=== PATIENT | female | born 1965 | race Caucasian/White ===

== ENCOUNTER 2020-08-18 14:47 | Emergency (ER) | payer OTHER, SELFPAY ==
[2020-08-18 15:00] VITALS: BP 171/84; PULSE 81; RESP 16; TEMP 36.4; O2SAT 96
--- NOTE | 2020-08-18 15:20 | ED.GENADULT ---
HPI - General Adult General Chief complaint: Neck Pain/Injury Stated complaint: severe neck pain Time Seen by Provider: 08/18/20 15:20 Source: patient and RN notes reviewed Mode of arrival: ambulatory Limitations: no limitations History of Present Illness HPI narrative: 55-year-old female presents with complaints of mid-lower posteior neck pain with intermittent burning sensation throughout shoulders for the past 2-3 months. Aleve for 2 weeks, Tylenol, last yesterday, and Ibuprofen 600mg last this morning at 09:00 without relief. No injury. Ashia says she lifts 30-40 pound boxes at work. No headache or numbness or weakness in the arms/upper extremities. Denies numbness. Tingling throughout upper shoulders that radiates down arms into hands intermittently. Denies pain with movement of shoulder. No loss of mobility. No swelling. Relieving factor is rest at times. The dominant hand is the RIGHT HAND. The patient reports she have not been diagnosed with COVID-19. The patient reports she is not waiting for the results of a COVID-19 lab test. The patient reports she do not have fever, chills, weakness, or fatigue. The patient reports she do not have a new or worsening cough or shortness of breath. Denies chest pain. The patient reports she do not have any rhinorrhea, congestion, loss of taste, sore throat, loss of taste, nausea, vomiting, abdominal pain, and diarrhea. Tolerating po intake well. Denies recent traveling. Denies concerns for COVID-19 or exposures been home with limited outdoor exposure except for essential household needs, work, and return home. At this time, patient is not suspected of having COVID-19. Some parts of this dictation were generated by voice recognition software and may contain typographical and/or grammatical inaccuracies. Related Data Allergies Allergy/AdvReac Type Severity Reaction Status Date / Time No Known Allergies Allergy Verified 08/19/20 10:35 Review of Systems Review of Systems: Narrative: CONSTITUTIONAL: Denies fever, chills, sweats. EYES: Denies visual changes, redness, discharge. ENT: Denies rhinorrhea, congestion, sore throat, otalgia. CARDIOVASCULAR: Denies chest pain, palpitations, edema. RESPIRATORY: Denies dyspnea, wheezing, cough. GASTROINTESTINAL: Denies abdominal pain, nausea, vomiting, diarrhea. GENITOURINARY: Denies dysuria, hematuria, abnormal discharge. SKIN: Denies rash or itching. MUSCULOSKELETAL: Denies acute back pain, joint pain, or myalgia. Complains of mid-lower posterior neck pain with burning sensation into shoulders. NEUROLOGIC: Denies numbness or focal weakness. PSYCHIATRIC: Denies anxiety or depression. All systems reviewed & are unremarkable except as noted in HPI and below. [facility] Past Medical History Medical History (Updated 08/19/20 @ 12:25 by Adrienne Mcknight MD) Arthralgia Chronic insomnia MDD (major depressive disorder), recurrent episode, mild Postmenopausal Tobacco abuse Surgical History Surgical History (Updated 08/19/20 @ 12:16 by Adrienne Mcknight MD) History of tubal ligation Tubal ligation status Social History Social History (Updated 08/19/20 @ 10:38 by Yolis Rosado) Social History: Smoking packs per day: 0.5 Smoking cigarettes per day: 10.0 Years smoked: 30 Smoking pack-years: 15.00 Smoking status: Current every day smoker Tobacco type: cigarettes Second hand tobacco smoke exposure: Yes Alcohol intake: current Substance use: never Substance use type: does not use Gender identity (if verbalized by the patient): Female Comments At time of signature, I have reviewed and agree with nursing past medical, surgical, social, and family history. Please see nursing chart for further information. There is no relevant family history pertinent to the presenting complaint. Exam Narrative: Exam Narrative: GENERAL: This is a well-nourished, well-developed patient, in no apparent dist
[2020-08-18] MEDS: KETOROLAC (*BKC) 60 MG/2 ML VIAL IM (15:36)
== END 2020-08-18 16:08 | disposition home or self-care (01) ==
PROVIDERS: Emergency Provider Nurse Practitioner Family
DX: M54.2 Cervicalgia (principal); F17.210 Nicotine dependence, cigarettes, uncomplicated
CPT/HCPCS: 96372; 99203; G0463; J1885

== ENCOUNTER → 2023-02-28 11:20 | Outpatient (CLI) | payer OTHER, SELFPAY ==
--- NOTE | ~2023-02-28 | CT_ITS ---
EXAMINATION: CT lung screening DATE: 02/28/2023 11:47 INDICATION: lung cancer screening TECHNIQUE: Computed tomography (CT) of the chest was performed without intravenous contrast. Addition al 3D reconstructions utilizing coronal maximum intensity projection (MIP) were performed. Automated exposure control and iterative reconstruction technique were employed. The dose-length product was 11 7.57 mGy-cm. COMPARISON: None FINDINGS: Mild emphysema. 4 mm subpleural nodule in the left lower lobe. There are bilateral thin triangular in trafissural lymph nodes along the left and right major fissures. Mild linear discoid atelectasis/scar ring at the caudal tip of the lingula. Additional mild atelectasis/scarring at the medial margin of t he right middle lobe. No pneumonia, pulmonary edema or pleural effusion. Heart size is normal. Small amount of atherosclerotic coronary artery calcific location. No pericardial effusion. Thoracic aorta is normal in caliber. No pathologically enlarged thoracic lymphadenopathy. Superficial 1.5 cm midline posterior subcutaneous relatively low density nodule overlying the spinous process of T4 most likely a sebaceous/epidermoid cyst. Mild upper thoracic levocurvature with mild spondylosis. IMPRESSION: 1. Lung-RADS category 2: Benign appearance or behavior. Continue annual screening with noncontrast lo w-dose chest CT in 12 months. 2. Nonspecific 1.5 cm superficial subcutaneous nodule posterior to the T4 spinous process, statistica lly most likely represent a sebaceous/epidermoid cyst. Reviewed, dictated and finalized at location A. IMPRESSION: 1. Lung-RADS category 2: Benign appearance or behavior. Continue annual screeni ng with noncontrast low-dose chest CT in 12 months. 2. Nonspecific 1.5 cm superficial subcutaneous nodule posterior to the T4 spino us process, statistically most likely represent a sebaceous/epidermoid cyst.
== END ==
PROVIDERS: PCP Family Medicine; Visit Provider Family Medicine
DX: Z12.2 Encounter for screening for malignant neoplasm of respiratory organs (principal); Z87.891 Personal history of nicotine dependence
CPT/HCPCS: 71271

== ENCOUNTER → 2023-03-03 13:18 | Outpatient (CLI) | payer OTHER, SELFPAY ==
--- NOTE | ~2023-03-03 | US_ITS ---
EXAMINATION: US soft tissue upper back INDICATION: Palpable soft tissue abnormality of the upper back TECHNIQUE: Targeted ultrasound is performed in the area of clinical concern. COMPARISON: None available FINDINGS: There is a 1.7 x 1 x 1.5 cm round, circumscribed, hypoechoic area in the subcutaneous tissu es of the upper back corresponding to area of clinical concern. There is a tract to the skin surface. No abnormal vascularity is identified. There is posterior acoustic enhancement. IMPRESSION: 1. Findings consistent with a sebaceous cyst of the upper back corresponding to the area of clinical concern. Reviewed, dictated and finalized at location L.
== END ==
PROVIDERS: PCP Family Medicine; Visit Provider Physician Assistant
DX: R93.89 Abnormal findings on diagnostic imaging of other specified body structures (principal)
CPT/HCPCS: 76604

== ENCOUNTER → 2023-05-23 12:00 | Outpatient (CLI) | payer OTHER, SELFPAY ==
--- NOTE | ~2023-05-23 | US_ITS ---
EXAMINATION: US carotid duplex BI DATE: 05/23/2023 12:24 INDICATION: Vertigo. Syncope and collapse. TECHNIQUE: Grayscale, color Doppler, and pulsed Doppler images of the cervical carotid arteries were obtained. The degree of vessel stenosis is placed in one of the following categories: normal, <50%, 5 0-69%, >=70% but less than near-occlusion, near-occlusion, or total occlusion. Note that percent sten osis relative to normal distal artery lumen diameter is indirectly measured from velocity measurement s as described by Dirk, et al. Radiology 2003; 229:340-346. COMPARISON: None. FINDINGS: RIGHT: The right common carotid artery (CCA) peak systolic velocity (PSV) is 90 cm/s. The right internal car otid artery (ICA) PSV is 80 cm/s. The right ICA end-diastolic velocity (EDV) is 27 cm/s. The right IC A/CCA PSV ratio is 1.4. Grayscale and color Doppler images yield an estimate of <50% diameter reducti on from plaque in the ICA. The external carotid artery (ECA) PSV is 124 cm/s. There is antegrade flow in the right vertebral artery. LEFT: The left CCA PSV is 78 cm/s. The left ICA PSV is 76 cm/s. The left ICA EDV is 32 cm/s. The left ICA/C CA PSV ratio is 1.7. Grayscale and color Doppler images yield an estimate of <50%1 diameter reduction from plaque in the ICA. The ECA PSV is 105 cm/s. There is antegrade flow in the left vertebral arter y. IMPRESSION: 1. <50% stenosis in the right internal carotid artery. 2. <50% stenosis in the left internal carotid artery. Reviewed, dictated and finalized at location A.
== END ==
PROVIDERS: PCP Family Medicine; Visit Provider Physician Assistant
DX: R55 Syncope and collapse (principal); I65.23 Occlusion and stenosis of bilateral carotid arteries
CPT/HCPCS: 93880

== ENCOUNTER 2023-06-24 09:28 | Outpatient (CLI) | payer OTHER, SELFPAY ==
--- NOTE | 2023-06-24 09:37 | ECHO_ITS ---
Patient Info Name: Ashia Rodríguez Age: 57 years : 1965 Gender: Female Ht: 64 in Wt: 179 lbs BSA: 1.94 m2 HR: 67 bpm BP: 137 / 89 mmHg Heart Rhythm: Sinus Rhythm Technical Quality: Fair Exam Date: 06/24/2023 9:51 AM Exam Location: [facility] Patient Status: Outpatient Admit Date: 06/24/2023 Staff Ordering Physician: Rebecca Thomas PA-C Chip Applying Machine Tender: Ina Benitez RDCS Attending Provider: Rebecca Thomas PA-C Referring Physician: William PEARL; Exam Type: CA echo doppler color flow Study Info Indications - syncope /collaspe Complete two-dimensional, color flow and Doppler transthoracic echocardiogram is performed. Summary 1. Complete two-dimensional, color flow and Doppler transthoracic echocardiogram is performed. 2. Normal left ventricular size thickness and overall systolic function. 3. Grade 1 diastolic noncompliance. 4. Abnormal septal motion with IVCD or bundle branch block, correlate with 12 lead ECG. 5. No valvular dysfunction. Left Ventricle Left ventricular chamber dimension is normal. Left ventricular systolic function is normal, estimated at 50-55%. Left ventricular septal wall motion is abnormal with septal motion related to bundle branch block. The left ventricular diastolic function is grade I diastolic dysfunction. Right Ventricle Right ventricular chamber dimension is normal. Left Atria Left atrial chamber dimension is normal. Right Atria Right atrial chamber dimension is normal. Aortic Valve The aortic valve is normal. Pulmonic Valve The pulmonic valve is not well visualized. Mitral Valve The mitral valve has normal leaflets. Tricuspid Valve The tricuspid valve leaflets are normal. Pericardium/Pleural The pericardium appears normal. Aorta The aortic root size at the sinus of Valsalva is normal. Left Ventricular Outflow Tract Name Value Normal LVOT 2D LVOT Diameter 2.1 cm LVOT Doppler LVOT Peak Gradient 4 mmHg LVOT Mean Gradient 2 mmHg LVOT VTI 19 cm LVOT VTI/AV VTI Ratio 0.8 LVOT Stroke Volume 63 ml LVOT CO 12.7 l/min LVOT CI 6.6 l/min/m2 Pulmonic Valve Name Value Normal PV Doppler PV Peak Gradient 4 mmHg Mitral Valve Name Value Normal MV Doppler MV Decel [place] 270 cm/s2 MV PHT 63 ms MV Area (PHT) 3.5 cm2 4.0-5.0 MV Diastolic Function
== END 2023-06-24 09:29 | disposition home or self-care (01) ==
PROVIDERS: PCP Family Medicine; Visit Provider Physician Assistant
DX: R55 Syncope and collapse (principal)
CPT/HCPCS: 93306

== ENCOUNTER 2023-08-03 09:02 | Outpatient (CLI) | payer OTHER, SELFPAY ==
[2023-08-03 09:57] LABS: Alanine Aminotransferase 22 U/L (6-35); Albumin Level 4.5 g/dL (3.5-5.1); Alkaline Phosphatase 75 U/L (38-126); Anion Gap 10 mmol/L (8-16); Aspartate Amino Transferase 24 U/L (14-36); Bilirubin,Total 0.4 mg/dL (0.2-1.3); Blood Urea Nitrogen 16 mg/dL (7-17); Calcium 9.2 mg/dL (8.4-10.2); Carbon Dioxide 28 mmol/L (22-30); Chloride 100 mmol/L (98-107); Cholesterol 166 mg/dL (0-200); Estimated Glomerular Filt Rate > 60; Glucose 138 mg/dL (65-110); HDL Direct 40 mg/dL; Potassium 4.5 mmol/L (3.4-5.0); Sodium 138 mmol/L (137-145); Triglycerides 337 mg/dL (<150)
[2023-08-03 10:08] LABS: LDL Cholesterol Direct 82 mg/dL
[2023-08-03 10:47] LABS: Hemoglobin A1C 6.2 % (<5.7)
== END 2023-08-03 09:03 | disposition home or self-care (01) ==
PROVIDERS: PCP Family Medicine; Referring Provider Internal Medicine Cardiovascular Disease; Visit Provider Physician Assistant
DX: E11.9 Type 2 diabetes mellitus without complications (principal); K21.9 Gastro-esophageal reflux disease without esophagitis; E78.2 Mixed hyperlipidemia; I10 Essential (primary) hypertension
CPT/HCPCS: 36415; 80053; 80061; 83036

== ENCOUNTER 2023-09-13 08:07 | Outpatient (CLI) | payer OTHER, SELFPAY ==
--- NOTE | ~2023-09-13 | NM_ITS ---
EXAMINATION: NM zonia stress w perfusion DATE: 09/13/2023 11:09 INDICATION: Dyspnea on exertion TECHNIQUE: Rest images were obtained following intravenous administration of 9.016 mCi Tc99m tetrofos min (Myoview). The patient was infused intravenously with Lexiscan (Regadenoson). Then, 28.3 mCi Tc99 m tetrofosmin (Myoview) was administered intravenously, and stress images were obtained. Data was rec onstructed into short axis and horizontal and vertical long axis SPECT images. Gated SPECT images wer e also obtained. COMPARISON: None. FINDINGS: There are perfusion defects at the basilar anteroseptal and anterior segments and extending short distance into the adjacent mid anteroseptal and mid anterior segments which are more prominent at the anteroseptal segments on the rest than on the stress imaging and which shift in position when comparing the post stress images obtained in the supine and prone positions. This likely reflects br east attenuation artifact. No common regions of decreased activity on the post stress images obtained in the prone and supine position to suggest ischemia or infarct. There is normal left ventricular ch hannah size, wall motion and ejection fraction. Left ventricular ejection fraction measures 67%. IMPRESSION: 1. Likely breast attenuation artifact along the basilar and portions of the mid anteroseptal and ante rior segments. No definitive perfusion defects and common on the post stress imaging obtained in pron e and supine position to suggest ischemia or infarct. 2. Left ventricular ejection fraction measuring 67%. Reviewed, dictated and finalized at location A. IMPRESSION: 1. Likely breast attenuation artifact along the basilar and portions of the mid anteroseptal and anterior segments. No definitive perfusion defects and common on the post stress imaging obtained in prone and supine position to suggest is chemia or infarct. 2. Left ventricular ejection fraction measuring 67%.
--- NOTE | 2023-09-13 08:32 | EST_ITS ---
Patient Info Name: Ashia Rodríguez Age: 58 years : 1965 Gender: Female Ht: 62 in Wt: 180 lbs BSA: 1.92 m2 HR: 74 bpm BP: 127 / 79 mmHg Heart Rhythm: Sinus Rhythm Exam Date: 09/13/2023 9:49 AM Exam Location: [facility] Stress Patient Status: Outpatient Admit Date: 09/13/2023 Staff Ordering Physician: Cb Bishop DO Attending Provider: Cb Bishop DO Exercise Technologist: Karen Galeano CT Exercise Physician: Cb Bishop DO Exam Type: CA stress zonia w NM Study Info Indications R06.09 - Other forms of dyspnea A regadenoson stress test was performed. Summary 1. 1. Negative lexiscan stress test for ischemic ST changes by ECG criteria. 2. 2. Stable hemodynamics throughout the test. 3. 3. Nuclear scan to follow and will be reported separately. Please correlate with it. 4. 4. Patient informed of the above results. Protocol: Lexiscan Stress ECG Details Stage: REST Duration (min): 1 min : 3 sec HR (bpm): 75 SBP (mmHg): 127 DBP (mmHg): 79 Stage: REST Duration (min): 8 min : 26 sec HR (bpm): 80 SBP (mmHg): 127 DBP (mmHg): 79 Stage: STAGE 1 Duration (min): 1 min : 0 sec HR (bpm): 104 SBP (mmHg): 122 DBP (mmHg): 81 Stage: RECOVERY Duration (min): 1 min : 0 sec HR (bpm): 93 SBP (mmHg): 122 DBP (mmHg): 81 Stage: RECOVERY Duration (min): 2 min : 0 sec HR (bpm): 96 SBP (mmHg): 122 DBP (mmHg): 81 Stage: RECOVERY Duration (min): 3 min : 0 sec HR (bpm): 88 SBP (mmHg): 119 DBP (mmHg): 76 Stage: RECOVERY Duration (min): 3 min : 15 sec HR (bpm): 87 SBP (mmHg): 119 DBP (mmHg): 76 Rest HR: 80 bpm Peak HR: 104 bpm Rest Sys BP: 127 mmHg Peak Sys BP: 122 mmHg Max Pred HR: 162 bpm % Max Pred HR: 64 % Target HR: 138 bpm Max RPP: 12,688 bpm*mmHg Termination Reason: Completed protocol Cardiac Symptoms: Shortness of breath Total Time: 1 min : 0 sec Rest Villarreal BP: 79 mmHg Peak Villarreal BP: 81 mmHg Total Dose: 0.4 mg Resting ECG Sinus rhythm. Stress ECG No ST changes. Arrhythmias None. Report Signatures
== END 2023-09-13 08:08 | disposition home or self-care (01) ==
LOC: ANHCARD 08:08
PROVIDERS: PCP Family Medicine; Visit Provider Internal Medicine Cardiovascular Disease
DX: R06.09 Other forms of dyspnea (principal)
CPT/HCPCS: 78452; 93017; A9502; J2785

== ENCOUNTER 2024-02-06 09:32 | Outpatient (CLI) | payer OTHER, SELFPAY ==
--- NOTE | ~2024-02-06 | XR_ITS ---
EXAMINATION: XR_[id number]_CR DATE: 02/06/2024 09:59 INDICATION: Neck pain. TECHNIQUE: 3 views of cervical spine were obtained. COMPARISON: None. FINDINGS: There is 8 degrees dextrocurvature of cervical spine. There is hypolordosis of cervical spi ne. Vertebral body heights are normal. There is moderately decreased disc height at C4-C5 and C5-C6. There is multilevel uncovertebral joint osteoarthritis, severe on the left at C4-C5 and C5-C6. There is multilevel mild facet joint osteoarthritis. There is mild central canal stenosis at C4-C5 and C5-C 6. No prevertebral soft tissue swelling. IMPRESSION: 1. Moderate cervical spondylosis. Reviewed, dictated and finalized at location A.
== END 2024-02-06 09:33 ==
PROVIDERS: PCP Physician Assistant; Visit Provider Physician Assistant
DX: M47.892 Other spondylosis, cervical region (principal)
CPT/HCPCS: 72040

== ENCOUNTER 2024-03-28 03:08 | Day surgery (SDC) | payer OTHER, SELFPAY ==
[2024-03-13 12:54] VITALS: BMI 32.5
[2024-03-28 06:19] VITALS: BP 129/81; PULSE 82; RESP 18; TEMP 36.1; O2SAT 95; BMI 33.0
[2024-03-28] MEDS: LACTATED RINGERS 1,000 ML 150 ML IV CONT (06:33)
[2024-03-28 06:36] LABS: Glucose Point of Care 154 mg/dl (65-105)
--- NOTE | 2024-03-28 07:21 | PM.HPGS ---
History of Present Illness History of Present Illness Consent: Risks, benefits, and alternatives have been discussed and questions answered. Patient agrees to proceed with procedure. Chief complaint: other fecal abnormalities, neoplasm screening Narrative: Ashia Rodríguez is a 58 year old female here for colonoscopy, had + cologuard Review of Systems Review of Systems: All systems reviewed & are unremarkable except as noted in HPI and below PMFSH Past Medical History Medical History Arthralgia Breast cancer screening Cervical paraspinal muscle spasm Chronic insomnia COPD (chronic obstructive pulmonary disease) MDD (major depressive disorder), recurrent episode, mild Postmenopausal Tobacco abuse UTI (urinary tract infection) Surgical History Surgical History History of tubal ligation Tubal ligation status Family History Family History Father Heart disease Mother Heart disease Sibling Heart disease, Onset Age: 28 [place] Grandparent Family history of heart disease Social History Social History Social History: Smoking packs per day: 1 Smoking cigarettes per day: 20.0 Years smoked: 30 Smoking pack-years: 30.00 Smoking status: Former smoker Tobacco type: cigarettes Second hand tobacco smoke exposure: Yes Smoking end date: 12/01/20 Alcohol intake: current Alcohol use details: socially Substance use: never Substance use type: does not use Do You Feel Safe in your Home?: Yes Lack of Transportation: No Lack of Food: Never True Current Housing: I Have Housing Concerned About Future Housing: No Difficulty Paying Gas/Electric Bills: No Difficulty Paying for Meds: No Currently Unemployed: YES Education: Don't Know Difficulty w/ Childcare or Family Care: No Living arrangements: with family Occupation/Education: unemployed Additional occupation/education comments: Disability Gender identity (if verbalized by the patient): Female Sexual Orientation (if Verbalized by the Patient): Straight or Heterosexual Spiritual care concerns: No Meds Home Medications and Allergies Home Medications Medication Instructions Recorded Confirmed Type blood sugar diagnostic (Blood #200 ea 07/22/21 03/28/24 Rx Glucose Test strips) aspirin 81 mg chewable tablet 81 mg PO DAILY 10/18/22 03/28/24 History umeclidinium 62.5 mcg-vilanterol 1 inh inhalation DAILY 02/17/23 03/28/24 History 25 mcg/actuation powdr for inhalation (Anoro Ellipta) dapagliflozin propanediol 5 mg 5 mg PO DAILY 04/22/23 03/28/24 History tablet (Farxiga) albuterol sulfate 90 mcg/actuation 1 inh inhalation Q4H PRN shortness 01/04/24 03/28/24 Rx aerosol inhaler (ProAir HFA) of breath or wheezing #8.5 grams buspirone 5 mg tablet 5 mg PO BID #60 tabs 01/04/24 03/28/24 Rx lisinopril 20 See Rx Instructions .Route 01/04/24 03/28/24 Rx mg-hydrochlorothiazide 12.5 mg .COMPLEX #90 tabs tablet metformin 1,000 mg tablet See Rx Instructions .Route 01/04/24 03/28/24 Rx .COMPLEX #180 tabs rosuvastatin 10 mg tablet 10 mg PO DAILY #90 tabs 01/04/24 03/28/24 Rx trazodone 50 mg tablet See Rx Instructions .Route 01/04/24 03/28/24 Rx .COMPLEX #90 tabs cyclobenzaprine 5 mg tablet 5 mg PO TID PRN muscle spasm #90 02/06/24 03/28/24 Rx tabs meloxicam 15 mg tablet 15 mg PO DAILY #30 tabs 02/06/24 03/28/24 Rx Allergies Allergy/AdvReac Type Severity Reaction Status Date / Time No Known Allergies Allergy Verified 03/28/24 06:18 Vital Signs Vital Signs - 24 hr 03/28/24 06:19 Temperature 96.9 F L Pulse Rate 82 Respiratory Rate 18 Blood Pressure 129/81 Pulse Oximetry 95 Oxygen Delivery Room Air
--- NOTE | 2024-03-28 07:27 | WPDANESEPPF ---
Anes - Initial Pre Proc Eval Procedure: Operation Date: 03/28/24 07:30 Proposed Procedures p Colonoscopy - Yusuf Schumacher MD Date/Time: 03/28/24 07:27 Surgeon: Yusuf Schumacher MD Pre Op Diagnosis: other fecal abnormalities, neoplasm screening Patient Data Age: 58 Gender: F Height: 1.57 m Weight: 82 kg Last Vital Signs Temp 96.9 F L 03/28/24 06:19 Pulse 82 03/28/24 06:19 Resp 18 03/28/24 06:19 BP 129/81 03/28/24 06:19 Pulse Ox 95 03/28/24 06:19 O2 Del Method Room Air 03/28/24 06:19 Allergies Allergy/AdvReac Type Severity Reaction Status Date / Time No Known Allergies Allergy Verified 03/28/24 06:18 Home Medications Medication Instructions Recorded Confirmed Type blood sugar diagnostic (Blood #200 ea 07/22/21 03/28/24 Rx Glucose Test strips) aspirin 81 mg chewable tablet 81 mg PO DAILY 10/18/22 03/28/24 History umeclidinium 62.5 mcg-vilanterol 1 inh inhalation DAILY 02/17/23 03/28/24 History 25 mcg/actuation powdr for inhalation (Anoro Ellipta) dapagliflozin propanediol 5 mg 5 mg PO DAILY 04/22/23 03/28/24 History tablet (Farxiga) albuterol sulfate 90 mcg/actuation 1 inh inhalation Q4H PRN shortness 01/04/24 03/28/24 Rx aerosol inhaler (ProAir HFA) of breath or wheezing #8.5 grams buspirone 5 mg tablet 5 mg PO BID #60 tabs 01/04/24 03/28/24 Rx lisinopril 20 See Rx Instructions .Route 01/04/24 03/28/24 Rx mg-hydrochlorothiazide 12.5 mg .COMPLEX #90 tabs tablet metformin 1,000 mg tablet See Rx Instructions .Route 01/04/24 03/28/24 Rx .COMPLEX #180 tabs rosuvastatin 10 mg tablet 10 mg PO DAILY #90 tabs 01/04/24 03/28/24 Rx trazodone 50 mg tablet See Rx Instructions .Route 01/04/24 03/28/24 Rx .COMPLEX #90 tabs cyclobenzaprine 5 mg tablet 5 mg PO TID PRN muscle spasm #90 02/06/24 03/28/24 Rx tabs meloxicam 15 mg tablet 15 mg PO DAILY #30 tabs 02/06/24 03/28/24 Rx Laboratory Tests 03/28/24 06:25 POC Capillary Glucose 154 H mg/dl (65-105) Patient hx anesthesia problems: none Family hx anesthesia problems: none Results Review: All pre-operative results and documents have been reviewed as part of the pre-operative evaluation. [facility] Past Medical History Medical History Arthralgia Breast cancer screening Cervical paraspinal muscle spasm Chronic insomnia COPD (chronic obstructive pulmonary disease) MDD (major depressive disorder), recurrent episode, mild Postmenopausal Tobacco abuse UTI (urinary tract infection) Surgical History Surgical History History of tubal ligation Tubal ligation status Family History Family History Father Heart disease Mother Heart disease Sibling Heart disease, Onset Age: 28 [place] Grandparent Family history of heart disease Social History Social History Social History: Smoking packs per day: 1 Smoking cigarettes per day: 20.0 Years smoked: 30 Smoking pack-years: 30.00 Smoking status: Former smoker Tobacco type: cigarettes Second hand tobacco smoke exposure: Yes Smoking end date: 12/01/20 Alcohol intake: current Alcohol use details: socially Substance use: never Substance use type: does not use Do You Feel Safe in your Home?: Yes Lack of Transportation: No Lack of Food: Never True Current Housing: I Have Housing Concerned About Future Housing: No Difficulty Paying Gas/Electric Bills: No Difficulty Paying for Meds: No Currently Unemployed: YES Education: Don't Know Difficulty w/ Childcare or Family Care: No Living arrangements: with family Occupation/Education: unemployed Additional occupation/education comments: Disa
[2024-03-28 07:48] VITALS: BP 105/68; PULSE 78; RESP 18; O2SAT 95
[2024-03-28 07:56] VITALS: BP 116/64; PULSE 75; RESP 17; O2SAT 97
[2024-03-28 08:08] VITALS: BP 119/80; PULSE 74; RESP 14; O2SAT 95
== END 2024-03-28 08:17 | disposition home or self-care (01) ==
PROVIDERS: PCP Family Medicine; Visit Provider Internal Medicine Gastroenterology
PROC: 0DJD8ZZ Inspection of Lower Intestinal Tract, Via Natural or Artificial Opening Endoscopic (ICD-10-PCS; CPT 45378; principal; 2024-03-28 07:30)
DX: D12.0 Benign neoplasm of cecum (principal); K57.30 Diverticulosis of large intestine without perforation or abscess without bleeding; K64.8 Other hemorrhoids; J44.9 Chronic obstructive pulmonary disease, unspecified; F33.0 Major depressive disorder, recurrent, mild; Z87.891 Personal history of nicotine dependence; E66.9 Obesity, unspecified; Z68.33 Body mass index [BMI] 33.0-33.9, adult; Z79.51 Long term (current) use of inhaled steroids; Z79.84 Long term (current) use of oral hypoglycemic drugs; Z79.82 Long term (current) use of aspirin
CPT/HCPCS: 45385; 82948; 88305; J2704; J7120

== ENCOUNTER 2024-06-25 10:27 | Outpatient (CLI) | payer OTHER, SELFPAY ==
[2024-06-25 11:03] LABS: Basophils Absolute Auto 0.1 K/mm3 (0.0-0.1); Basophils Percent Auto 0.7 % (0.2-1.2); Eosinophils Absolute Auto 0.1 K/mm3 (0-0.3); Eosinophils Percent Auto 0.8 % (0-4.4); Hematocrit 45.1 % (37.0-47.0); Hemoglobin 15.1 g/dL (12.0-15.0); Immature Granulocyte Absolute 0.03 K/mm3 (0.00-0.031); Immature Granulocyte Percent A 0.4 % (0-0.5); Lymphocytes Absolute Auto 1.83 K/mm3 (0.9-3.2); Lymphocytes Percent Auto 24.5 % (18.3-44.2); Mean Corpuscular HGB Conc 33.5 g/dl (32-36); Mean Corpuscular Hemoglobin 31.1 pg (26-34); Mean Corpuscular Volume 92.8 fl (80-100); Mean Platelet Volume 10.3 fl (7.4-10.4); Monocytes Absolute Auto 0.4 K/mm3 (0.1-0.6); Monocytes Percent Auto 4.7 % (2.6-8.5); Neutrophils Absolute Auto 5.2 K/mm3 (1.3-6.7); Neutrophils Percent Auto 68.9 % (45.5-73.1); Platelet Count Result 195 k/mm3 (150-375); Red Blood Count 4.86 M/mm3 (4.2-5.4); Red Cell Distribution Width 12.2 % (11.5-14.5); White Blood Count 7.5 K/mm3 (4.5-10.0)
[2024-06-25 11:14] LABS: Alanine Aminotransferase 22 U/L (6-35); Albumin Level 4.7 g/dL (3.5-5.1); Alkaline Phosphatase 72 U/L (38-126); Anion Gap 11 mmol/L (4-12); Aspartate Amino Transferase 28 U/L (14-36); Bilirubin,Total 0.7 mg/dL (0.2-1.3); Blood Urea Nitrogen 19 mg/dL (7-17); Calcium 9.6 mg/dL (8.4-10.2); Carbon Dioxide 27 mmol/L (22-30); Chloride 99 mmol/L (98-107); Cholesterol 253 mg/dL (0-200); Estimated Glomerular Filt Rate > 60; Glucose 159 mg/dL (65-110); HDL Direct 39 mg/dL; Potassium 4.5 mmol/L (3.4-5.0); Sodium 137 mmol/L (137-145); Triglycerides 394 mg/dL (<150)
[2024-06-25 11:25] LABS: LDL Cholesterol Direct 136 mg/dL
[2024-06-25 11:54] LABS: Microalbumin Urine Random 49.5 mg/L (0-16.7)
== END 2024-06-25 10:28 | disposition home or self-care (01) ==
PROVIDERS: Student in an Organized Health Care Education/Training Program; PCP Family Medicine; Visit Provider Physician Assistant
DX: E11.65 Type 2 diabetes mellitus with hyperglycemia (principal); E78.2 Mixed hyperlipidemia; I10 Essential (primary) hypertension
CPT/HCPCS: 36415; 80053; 80061; 82043; 83036; 85025

== ENCOUNTER 2025-02-18 09:56 | Outpatient (CLI) | payer OTHER, SELFPAY ==
[2025-02-18 10:52] LABS: Hematocrit 45.9 % (37.0-47.0); Hemoglobin 15.3 g/dL (12.0-15.0); Mean Corpuscular HGB Conc 33.3 g/dl (32-36); Mean Corpuscular Hemoglobin 30.8 pg (26-34); Mean Corpuscular Volume 92.5 fl (80-100); Mean Platelet Volume 10.4 fl (7.4-10.4); Platelet Count Result 181 k/mm3 (150-375); Red Blood Count 4.96 M/mm3 (4.2-5.4); Red Cell Distribution Width 12.9 % (11.5-14.5); White Blood Count 8.7 K/mm3 (4.5-10.0)
[2025-02-18 11:08] LABS: Alanine Aminotransferase 38 U/L (6-35); Albumin Level 4.9 g/dL (3.5-5.1); Alkaline Phosphatase 67 U/L (38-126); Anion Gap 13 mmol/L (4-12); Aspartate Amino Transferase 44 U/L (14-36); Bilirubin,Total 0.8 mg/dL (0.2-1.3); Blood Urea Nitrogen 17 mg/dL (7-17); Calcium 9.8 mg/dL (8.4-10.2); Carbon Dioxide 28 mmol/L (22-30); Chloride 98 mmol/L (98-107); Cholesterol 202 mg/dL (0-200); Estimated Glomerular Filt Rate > 60; Glucose 154 mg/dL (65-110); HDL Direct 47 mg/dL; Potassium 4.4 mmol/L (3.4-5.0); Sodium 139 mmol/L (137-145); Triglycerides 351 mg/dL (<150)
[2025-02-18 11:10] LABS: Hemoglobin A1C 7.6 % (<5.7)
--- OUTSIDE RECORDS SUMMARY | 2025-02-18 11:14 | XMS_ITS | Clinical Summary ---
Author Organization 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 Gender Identity Not on file Sexual Orientation Not on file Plan of Treatment Health Maintenance Due Date Last Done Comments Hepatitis C Virus (HCV) Screening 1965 TdaP Immunization 1965 Hepatitis B Immunization (1 of 3 - 19+ 3-dose series) 1984 Pap Smear 1986 Cervical Cancer Screening (CCS) 1995 HPV/Cotest 1995 Colonoscopy 2010 Colorectal Cancer Screening 2010 Cologuard 2015 Immunochemical Fecal Occult Blood 2015 Mammogram 2015 Pneumococcal Immunization (5 0+ years) (1 of 1 - PCV) 2015 Zoster Immunization (1 of 2) 2015 Influenza Immunization (#1) 2024 SARS-COV-2 Immunization ( season) 2024 Respiratory Syncytial Virus (RSV) Immunization (Adult) (1 - 1-dose 75+ series) 2040 Meningococcal Immunization (ACWY) Aged Out No longer eligible based on patient's age to complete this topic Pneumococcal Immunization Combined Aged Out No longer eligible based on patient's age to complete this topic Rotavirus Immunization Aged Out No lo nger eligible based on patient's age to complete this topic
[2025-02-18 11:19] LABS: LDL Cholesterol Direct 84 mg/dL
[2025-02-18 11:24] LABS: Free T4 Free Thyroxine 1.16 ng/dL (0.78-2.19)
[2025-02-18 11:35] LABS: Thyroid Stimulating Hormone 0.765 uIU/mL (0.465-4.680)
== END 2025-02-18 09:57 | disposition home or self-care (01) ==
LOC: ANHLAB 09:57
PROVIDERS: PCP Family Medicine; Visit Provider Physician Assistant
DX: E07.9 Disorder of thyroid, unspecified (principal); E11.65 Type 2 diabetes mellitus with hyperglycemia; I10 Essential (primary) hypertension; E78.2 Mixed hyperlipidemia; R55 Syncope and collapse
CPT/HCPCS: 36415; 80053; 80061; 83036; 84439; 84443; 85027

== ENCOUNTER 2025-03-07 08:07 | Outpatient (CLI) | payer OTHER, SELFPAY ==
--- NOTE | ~2025-03-07 | CT_ITS ---
CT Scan of the Chest without Contrast: Clinical Indication: Lung cancer screening, nicotine dependence Technique: Contiguous sections were acquired throughout the chest without intravenous contrast. Dose reduction technique was used on this scan by utilizing automated exposure control and iterative recon struction technique. The dose-length product (DLP) was 128.09 mGy-cm. COMPARISON: 02/28/2023 Findings: There is no evidence of any significant mediastinal, hilar or axillary lymphadenopathy. The mediastin al soft tissues appear normal. There is no evidence of pleural or pericardial effusion. Stable 3 mm left lower lobe pulmonary nodule (axial image 61). Mild to moderate emphysema present. Images through the upper abdomen reveal no abnormalities. Impression: Lung RADS 2: Benign appearance. 12 month follow-up screening CT advised. Reviewed, dictated and finalized at [facility]. Impression: Lung RADS 2: Benign appearance. 12 month follow-up screening CT advised.
--- NOTE | ~2025-03-07 | CT_ITS ---
CT of the Abdomen and Pelvis: Indication: Abdominal pain Technique: 2.5 mm axial scans were obtained through the abdomen and pelvis following intravenous adm inistration of 100 cc of Omnipaque 350. Dose reduction technique was used on this scan by utilizing a utomated exposure control and iterative reconstruction technique. The dose-length product (DLP) was 8 58.57 mGy-cm. Findings: Scans through the lung bases are unremarkable. There is diffuse hepatic steatosis. The spleen, pancreas, gallbladder, adrenals and kidneys are withi n normal limits. There are atherosclerotic calcifications of the aorta. No lymphadenopathy. No bowel obstruction or bowel wall thickening. There is no evidence to suggest acute appendicitis. Images through the pelvis were performed. Urinary bladder unremarkable. No pelvic mass seen. No ascit es. Impression: No acute abnormalities seen. Diffuse hepatic steatosis. Reviewed, dictated and finalized at [facility]. Impression: No acute abnormalities seen. Diffuse hepatic steatosis.
[2025-03-07 08:30] LABS: Estimated Glomerular Filt Rate 51
== END 2025-03-07 08:08 | disposition home or self-care (01) ==
PROVIDERS: PCP Family Medicine; Visit Provider Physician Assistant
DX: Z12.2 Encounter for screening for malignant neoplasm of respiratory organs (principal); K76.0 Fatty (change of) liver, not elsewhere classified; Z87.891 Personal history of nicotine dependence
CPT/HCPCS: 71271; 74177; Q9967

== ENCOUNTER 2025-06-25 09:26 | Outpatient (CLI) | payer OTHER, SELFPAY ==
--- OUTSIDE RECORDS SUMMARY | 2025-06-25 09:40 | XMS_ITS | Clinical Summary ---
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 Gender Identity Not on file Sexual Orientation Not on file Plan of Treatment Health Maintenance Due Date Last Done Comments Hepatitis C Virus (HCV) Screening 1965 TdaP Immunization 1965 Hepatitis B Immunization (1 of 3 - 19+ 3-dose series) 1984 Pap Smear 1986 Cervical Cancer Screening (CCS) 1995 HPV/Cotest 1995 Cologuard 2010 Colonoscopy 2010 Colorectal Cancer Screening 2010 Immunochemical Fecal Occult Blood 2010 Pneumococcal Immunization (5 0+ years) (1 of 1 - PCV) 2015 Zoster Immunization (1 of 2) 2015 SARS-COV-2 Immunization ( - season) 2024 Influenza Immunization (#1) 2025 Respiratory Syncytial Virus (RSV) Immunization (Adult) (1 - 1-dose 75+ series) 2040 Human Papillomavirus (HPV) Immunization Aged Out No longer eligible b ased on patient's age to complete this topic Meningococcal Immunization (ACWY) Aged Out No longer eligible based on patient's age to complete this topic Rotavirus Immunization Aged Out No lo nger eligible based on patient's age to complete this topic
[2025-06-25 10:31] LABS: Hematocrit 45.9 % (37.0-47.0); Hemoglobin 14.5 g/dL (12.0-15.0); Immature Granulocyte Percent A 0.5 % (0-0.5); Lymphocytes Absolute Auto 2.27 K/mm3 (0.9-3.2); Mean Corpuscular HGB Conc 31.6 g/dl (32-36); Mean Corpuscular Hemoglobin 29.2 pg (26-34); Mean Corpuscular Volume 92.5 fl (80-100); Nucleated Red Blood Cells Absolute Auto 0.000 K/mm3 (0.0-0.012); Nucleated Red Blood Cells Perc 0.0 % (0.0-0.2); Platelet Count Result 168 k/mm3 (150-375); Red Blood Count 4.96 M/mm3 (4.2-5.4); White Blood Count 8.7 K/mm3 (4.5-10.0)
[2025-06-25 10:33] LABS: Hemoglobin A1C 6.4 % (<5.7)
[2025-06-25 10:39] LABS: MALB Creatinine Ratio 19.3 mg/g (0-30)
[2025-06-25 10:46] LABS: Alanine Aminotransferase 23 U/L (6-35); Albumin Level 4.3 g/dL (3.5-5.1); Alkaline Phosphatase 77 U/L (38-126); Anion Gap 8 mmol/L (4-12); Aspartate Amino Transferase 28 U/L (14-36); Bilirubin,Total 0.4 mg/dL (0.2-1.3); Blood Urea Nitrogen 13 mg/dL (7-17); Calcium 9.1 mg/dL (8.4-10.2); Carbon Dioxide 26 mmol/L (22-30); Chloride 106 mmol/L (98-107); Cholesterol 193 mg/dL (0-200); Estimated Glomerular Filt Rate > 60; Glucose 153 mg/dL (65-110); HDL Direct 42 mg/dL; Potassium 4.6 mmol/L (3.4-5.0); Sodium 140 mmol/L (137-145); Total Protein 7.6 g/dL (6.3-8.2); Triglycerides 342 mg/dL (<150)
[2025-06-25 10:48] LABS: INR 0.9; Prothrombin Time 12.4 Seconds (11.1-14.7)
[2025-06-25 12:08] LABS: Percent Iron Saturation 28 % (20-50)
[2025-06-25 12:34] LABS: Iron 97 ug/dL (37-170)
[2025-06-25 19:10] LABS: Vitamin B12 858.0 pg/mL (239-931)
[2025-06-27 07:09] LABS: Deamidated Gliadin Abs, IgA 3 units (0-19); Deamidated Gliadin Abs, IgG 2 units (0-19); Immunoglobulin A, Qn 125 mg/dL (87-352)
[2025-06-27 11:08] LABS: ANA by IFA Rfx Titer/Pattern Positive (.)
[2025-06-28 02:07] LABS: ALT (SGPT) P5P 22 IU/L (0-40); Alpha 2-Macroglobulins, Qn 231 mg/dL (110-276); Bilirubin, Total 0.2 mg/dL (0.0-1.2); GGT 22 IU/L (0-60)
[2025-06-29 05:07] LABS: 1,25-Dihydroxy, Vitamin D-2 <10 pg/mL (.); 1,25-Dihydroxy, Vitamin D-3 63 pg/mL (.); Total 1,25-Dihydroxy,Vitamin D 68 pg/mL (.)
[2025-07-01 22:07] LABS: Anti-Mitochondrial Ab by IFA <1:20 (<1:20)
== END 2025-06-25 09:27 | disposition home or self-care (01) ==
PROVIDERS: PCP Family Medicine; Visit Provider Physician Assistant
DX: E11.65 Type 2 diabetes mellitus with hyperglycemia (principal); E55.9 Vitamin D deficiency, unspecified; R19.5 Other fecal abnormalities; I10 Essential (primary) hypertension; E78.2 Mixed hyperlipidemia; I25.10 Atherosclerotic heart disease of native coronary artery without angina pectoris; R53.83 Other fatigue; R79.89 Other specified abnormal findings of blood chemistry; K76.0 Fatty (change of) liver, not elsewhere classified
CPT/HCPCS: 36415; 80053; 80061; 81596; 82043; 82172; 82247; 82390; 82607; 82652; 82784; 82977; 83010; 83036; 83540; 83550; 83883; 84460; 85025; 85610; 86015; 86038; 86231; 86258; 86381

== ENCOUNTER 2025-10-01 08:17 | Outpatient (CLI) | payer OTHER, SELFPAY ==
--- OUTSIDE RECORDS SUMMARY | 2025-10-01 08:30 | XMS_ITS | Clinical Summary ---
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 Gender Identity Not on file Sexual Orientation Not on file Plan of Treatment Health Maintenance Due Date Last Done Comments Hepatitis C Virus (HCV) Screening 1965 TdaP Immunization 1965 Pap Smear 1986 Cervical Cancer Screening (CCS) 1995 HPV/Cotest 1995 Cologuard 2010 Colonoscopy 2010 Colorectal Cancer Screening 2010 Immunochemical Fecal Occult Blood 2010 Pneumococcal Immunization (5 0+ years) (1 of 1 - PCV) 2015 Zoster Immunization (1 of 2) 2015 Influenza Immunization (#1) 2025 SARS-COV-2 Immunization ( - season) 2025 Respiratory Syncytial Virus (RSV) Immunization (Adult) (1 - 1-dose 75+ series) 2040 Hepatitis B Immunization Aged Out No longer eligible based on patient's age to complete this topic Human Papillomavirus (HPV) Immunization Aged Out No longer eligible b ased on patient's age to complete this topic Meningococcal Immunization (ACWY) Aged Out No longer eligible based on patient's age to complete this topic Rotavirus Immunization Aged Out No lo nger eligible based on patient's age to complete this topic
[2025-10-01 09:40] LABS: Hemoglobin A1C 7.3 % (<5.7)
== END 2025-10-01 08:18 | disposition home or self-care (01) ==
LOC: ANHLAB 08:19
PROVIDERS: PCP Family Medicine; Visit Provider Student in an Organized Health Care Education/Training Program
DX: I10 Essential (primary) hypertension (principal); E11.9 Type 2 diabetes mellitus without complications
CPT/HCPCS: 36415; 83036